=== PATIENT | male | born 1950 | race Asian ===

== ENCOUNTER 2019-12-27 20:08 | Inpatient (IN) | payer OTHER ==
[2019-12-27] MEDS ORDERED: ONDANSETRON 4 MG/2 ML VIAL ONE (20:14)
[2019-12-27] MEDS ORDERED: MORPHINE 4 MG/ML SYR ONE (20:14)
[2019-12-27] MEDS ORDERED: AMIODARONE HCL 150 MG/3 ML INJ IV ONE (20:15)
[2019-12-27] MEDS ORDERED: NA CHLORIDE 0.9% 1,000 ML ONE (20:17)
--- NOTE | 2019-12-27 20:42 | RAD REPORT ---
EXAM DESCRIPTION: [place] Single View12/27/2019 8:36 pm CLINICAL HISTORY: Chest pain COMPARISON: none FINDINGS: The lungs appear clear of acute infiltrate. The heart is borderline enlarged IMPRESSION: No acute abnormalities displayed
[2019-12-27 20:54] LABS: ALT/SGPT 42 U/L (12-78); AST/SGOT 44 U/L (15-37); Albumin 3.8 g/dL (3.4-5.0); Alkaline Phosphatase 38 U/L (45-117); BUN Blood Urea Nitrogen 17 mg/dL (7-18); Bicarbonate 22 mmol/L (21-32); Bilirubin Direct 0.1 mg/dL (0-0.2); Bilirubin Total 0.5 mg/dL (0.2-1.0); Glucose Level 159 mg/dL (74-106); Magnesium 2.1 mg/dL (1.8-2.4); NT PRO-BNP 1481 pg/mL (<125); Protein, Total 7.1 g/dL (6.4-8.2); Sodium Level 137 mmol/L (136-145); Troponin (Emerg Dept Use Only) < 0.02 ng/mL (0.0-0.045)
[2019-12-27 21:00] LABS: Absolute Lymphocytes (CBC) 0.7 K/uL (0.7-4.9); Basophils % 0.3 % (0-1.3); Hematocrit 36.9 % (39.6-49.0); Lymphocytes % 19.2 % (15.3-44.8); MPV 7.7 fL (7.6-11.3); RBC Red Blood Cell Count 3.84 M/uL (4.33-5.43)
[2019-12-27 21:01] LABS: Protime INR 0.95
--- NOTE | 2019-12-27 21:15 | ER ---
Nurse's Notes [facility] Name: Juana Cerda Age: 69 yrs Sex: Male : 1950 Arrival Date: 12/27/2019 Time: 20:09 Bed 3 Private MD: Diagnosis: Ventricular tachycardia;Other chest pain Presentation: 12/26 20:10 Chief complaint: EMS states: "[place] and he started having chest jd3 pain. his family helped him to lay on the ground. he has a cardiac history and his current heart rate is 200.". Coronavirus screen: Proceed with normal triage. Ebola Screen: Patient negative for fever greater than or equal to 101.5 degrees Fahrenheit, and additional compatible Ebola Virus Disease symptoms. Initial Sepsis Screen: Does the patient meet any 2 criteria? HR > 90 bpm. No. Patient's initial sepsis screen is negative. Does the patient have a suspected source of infection? No. Patient's initial sepsis screen is negative. Risk Assessment: Do you want to hurt yourself or someone else? Patient reports no desire to harm self or others. Onset of symptoms was December 27, 2019. 20:10 Method Of Arrival: EMS: [facility] jd3 20:10 Acuity: STELLA 1 jd3 Historical: - Allergies: 20:30 No Known Allergies; jd3 - Home Meds: 20:30 Aspirin Oral [Active]; Metformin Oral [Active]; Metoprolol Tartrate Oral [Active]; jd3 - PMHx: 20:30 Atrial Fib; Myocardial infarction; Hypertension; Diabetes - NIDDM; jd3 - Immunization history:: Adult Immunizations unknown. - Social history:: Smoking status: Patient denies any tobacco usage or history of. Screenin:37 Abuse screen: Denies threats or abuse. Nutritional screening: No deficits noted. jd3 Tuberculosis screening: No symptoms or risk factors identified. Fall Risk IV access (20 points). Ambulatory Aid- None/Bed Rest/Nurse Assist (0 pts). Gait- Normal/Bed Rest/Wheelchair (0 pts) Mental Status- Oriented to own ability (0 pts). Total Newberry Fall Scale indicates No Risk (0-24 pts). Assessment: 20:10 General: Appears uncomfortable, Behavior is cooperative, appropriate for age, anxious. jd3 Pain: Complains of pain in chest Pain does not radiate. Pain currently is 10 out of 10 on a pain scale. Quality of pain is described as crushing, pressure, sharp, Pain began suddenly, Is continuous. Neuro: Level of Consciousness is awake, alert, obeys commands, Oriented to person, place, time, situation. Cardiovascular: Heart tones present Capillary refill < 3 seconds Rhythm is SVT. Respiratory: Airway is patent Respiratory effort is even, unlabored, Respiratory pattern is symmetrical, tachypnea Breath sounds are clear bilaterally. GI: Abdomen is round non-distended, Bowel sounds present X 4 quads. Abd is soft and non tender X 4 quads. Patient currently denies nausea, vomiting. : No signs and/or symptoms were reported regarding the genitourinary system. EENT: No signs and/or symptoms were reported regarding the EENT system. Derm: Skin is intact, Skin is clammy, Skin is pale, Skin temperature is cool. Musculoskeletal: Circulation, motion, and sensation intact. Range of motion: intact in all extremities. 20:20 Reassessment: Patient and/or family updated on plan of care and expected duration. Pain jd3 level reassessed. Patient states feeling better. General: Appears comfortable, Behavior is calm, cooperative, appropriate for age. Pain: Complains of pain in chest Quality of pain is described as aching, pressure. Cardiovascular: Heart tones S1 S2 present Capillary refill < 3 seconds Patient's skin is warm and dry. Rhythm is sinus tachycardia. Respiratory: Airway is patent Respiratory effort is even, unlabored, Respiratory pattern is symmetrical, tachypnea. Derm: Skin is intact, Skin is dry, Skin is normal, Skin temperature is warm. 21:15 Reassessment: Patient and/or family updated on plan of care and expected duration. Pain jd3 level reassessed. Patient is alert, oriented x 3, equal unlabored respirations, skin warm/dry/pink. Patient states feeling better. 22:05 Reassessment: Patient and/or family updated on plan of care and expected duration. Pain jd3 level reassessed. Patient is alert, oriented x 3, equal unlabored respirations, skin warm/dry/pink. report given to Pamela CONNOR. Vital Signs: 20:10 BP 74 / 60; Pulse 202; Resp 24 S; Temp 97.2(TE); Pulse Ox 100% on Non-rebreather mask; jd3 Weight 54.43 kg (R); Height 5 ft. 0 in. (152.40 cm) (R); Pain 10/10; 20:13 Pulse 162; Resp 24 S; Pulse Ox 100% on Non-rebreather mask; jd3 20:14 BP 97 / 69; Pulse 103; Resp 25 S; Pulse Ox 100% on Non-rebreather mask; jd3 20:15 BP 104 / 74; Pulse 103; Resp 23 S; Pulse Ox 100% on Non-rebreather mask; jd3 20:20 BP 104 / 77; Pulse 104; Resp 22 S; Pulse Ox 100% on Non-rebreather mask; jd3 20:30 BP 102 / 80; Pulse 108; Resp 19 S; Pulse Ox 100% on 2 lpm NC; jd3 21:15 BP 106 / 79; Pulse 115; Resp 19 S; Pulse Ox 100% on 2 lpm NC; jd3 22:06 BP 118 / 98; Pulse 108; Resp 20 S; Pulse Ox 100% on 2 lpm NC; jd3 20:10 Body Mass Index 23.44 (54.43 kg, 152.40 cm) [facility] ED Course: 20:07 EKG done, by ED staff, reviewed by Fabrice Anderson MD. sg 20:09 Patient arrived in ED. ds1 20:10 Arm band placed on. EKG completed in triage. Results shown to MD. jd3 20:15 Initial lab(s) drawn, by me, sent to lab. Missed attempt(s): 18 gauge in right sg antecubital area. Bleeding controlled, band aid applied, catheter tip intact. 20:19 Fabrice Anderson MD is Attending Physician. tw4 20:20 Patient has correct armband on for positive identification. Bed in low position. Call [facility] light in reach. Side rails up X2. Adult w/ patient. environmental monitoring technician on. Pulse ox on. NIBP on. 20:20 Inserted saline lock: 20 gauge in left antecubital area, using aseptic technique. oe 20:20 Missed attempt(s): 20 gauge in right wrist. Bleeding controlled, band aid applied, sg catheter tip intact. 20:21 EKG done, by ED staff, reviewed by Fabrice Anderson MD. sg 20:23 Barksdale, Aaron, RN is Primary Nurse. jd3 20:25 Triage completed. jd3 20:37 XRAY Chest (1 view) In Process Unspecified. EDMS 20:37 Oxygen administration via non-rebreather mask \\T\\ 15L/min Response to oxygen therapy: jd3 symptoms improved. 21:14 Mignon Ruiz MD is Hospitalizing Provider. tw4 22:05 No provider procedures requiring assistance completed. Patient admitted, IV remains in jd3 place. Administered Medications: 20:12 Drug: amiodarone 150 mg Route: IVP; Site: left antecubital; jd3 21:00 Follow up: Response: No adverse reaction jd3 20:12 Drug: NS 0.9% 1000 ml Route: IV; Rate: 1 bolus; Site: left antecubital; jd3 21:00 Follow up: Response: No adverse reaction; IV Status: Completed infusion; IV Intake: jd3 1000ml 21:34 Drug: amiodarone 900 mg, D5W 500 ml {Note: administering dose of 360mg per 200 ml D5W, jd3 per verbal order started..} Route: IVPB; Rate: 1 mg/min; Site: left antecubital; 22:06 Follow up: Response: No adverse reaction; IV Status: Infusion continued upon admission jd3 Intake: 21:00 IV: 1000ml; Total: 1000ml. jd3 Outcome: 21:14 Decision to Hospitalize by Provider. tw4 22:05 Admitted to ICU accompanied by nurse, accompanied by tech, via stretcher, room ICU 6, jd3 with oxygen, on monitor, with chart, Report called to Pamela CONNOR 22:05 Condition: stable 22:05 Instructed on the need for admit, Demonstrated understanding of instructions. 22:29 Patient left the ED. all Signatures: Dispatcher [employer] EDMS Jayesh Juarez, RN Amy Colon ds1 Damaso Montiel Elena, RN RN ea Davies, Jonathon, RN RN jd3 Wadley, Terrence, MD MD tw4 Corrections: (The following items were deleted from the chart) 20:31 20:30 Home Meds: Glucophage Oral; jd3 jd3 20:40 20:30 BP 102 / 80; Pulse 108bpm; Resp 19bpm; Spontaneous; Pulse Ox 100% Non-rebreather jd3 mask; jd3
--- NOTE | 2019-12-27 21:16 | EDPHYS ---
Physician Documentation [facility] Name: Juana Cerda Age: 69 yrs Sex: Male : 1950 Arrival Date: 12/27/2019 Time: 20:09 Bed 3 Private MD: ED Physician Fabrice Anderson HPI: 12/27 02:37 This 69 yrs old Male presents to ER via EMS with complaints of Chest Pain. tw4 02:37 The patient or guardian reports chest pain that is located primarily in the anterior tw4 chest wall, left. Onset: today. The pain does not radiate. The chest pain is described as dull. Duration: The patient or guardian reports a single episode. Modifying factors: The symptoms are alleviated by nothing. the symptoms are aggravated by nothing. Severity of pain: At its worst the pain was moderate in the emergency department the pain is unchanged. The patient has not experienced similar symptoms in the past. 02:39 Associated signs and symptoms: Pertinent positives: palpitations, shortness of breath. tw4 Historical: - Allergies: 12/26 20:30 No Known Allergies; jd3 - Home Meds: 20:30 Aspirin Oral [Active]; Metformin Oral [Active]; Metoprolol Tartrate Oral [Active]; jd3 - PMHx: 20:30 Atrial Fib; Myocardial infarction; Hypertension; Diabetes - NIDDM; jd3 - Immunization history:: Adult Immunizations unknown. - Social history:: Smoking status: Patient denies any tobacco usage or history of. ROS: 12/27 02:37 Constitutional: Negative for fever, chills, and weight loss, Eyes: Negative for injury, tw4 pain, redness, and discharge, Respiratory: Negative for shortness of breath, cough, wheezing, and pleuritic chest pain, Abdomen/GI: Negative for abdominal pain, nausea, vomiting, diarrhea, and constipation, Back: Negative for injury and pain, MS/Extremity: Negative for injury and deformity, Skin: Negative for injury, rash, and discoloration. Cardiovascular: Positive for chest pain, palpitations. Exam: 02:40 Constitutional: This is a well developed, well nourished patient who is awake, alert, tw4 and in no acute distress. Head/Face: Normocephalic, atraumatic. Chest/axilla: Normal chest wall appearance and motion. Nontender with no deformity. No lesions are appreciated. Respiratory: Lungs have equal breath sounds bilaterally, clear to auscultation and percussion. No rales, rhonchi or wheezes noted. No increased work of breathing, no retractions or nasal flaring. Abdomen/GI: Soft, non-tender, with normal bowel sounds. No distension or tympany. No guarding or rebound. No evidence of tenderness throughout. Back: No spinal tenderness. No costovertebral tenderness. Full range of motion. MS/ Extremity: Pulses equal, no cyanosis. Neurovascular intact. Full, normal range of motion. Neuro: Awake and alert, GCS 15, oriented to person, place, time, and situation. Cranial nerves II-XII grossly intact. Motor strength 5/5 in all extremities. Sensory grossly intact. Cerebellar exam normal. Normal gait. 02:40 Cardiovascular: Rate: tachycardic, actual rate is 200 bpm, Rhythm: regular. Vital Signs: 12/26 20:10 BP 74 / 60; Pulse 202; Resp 24 S; Temp 97.2(TE); Pulse Ox 100% on Non-rebreather mask; jd3 Weight 54.43 kg (R); Height 5 ft. 0 in. (152.40 cm) (R); Pain 10/10; 20:13 Pulse 162; Resp 24 S; Pulse Ox 100% on Non-rebreather mask; jd3 20:14 BP 97 / 69; Pulse 103; Resp 25 S; Pulse Ox 100% on Non-rebreather mask; jd3 20:15 BP 104 / 74; Pulse 103; Resp 23 S; Pulse Ox 100% on Non-rebreather mask; jd3 20:20 BP 104 / 77; Pulse 104; Resp 22 S; Pulse Ox 100% on Non-rebreather mask; jd3 20:30 BP 102 / 80; Pulse 108; Resp 19 S; Pulse Ox 100% on 2 lpm NC; jd3 21:15 BP 106 / 79; Pulse 115; Resp 19 S; Pulse Ox 100% on 2 lpm NC; jd3 22:06 BP 118 / 98; Pulse 108; Resp 20 S; Pulse Ox 100% on 2 lpm NC; jd3 20:10 Body Mass Index 23.44 (54.43 kg, 152.40 cm) jd3 MDM: 20:23 Patient medically screened. tw4 12/27 02:41 Differential diagnosis: abnormal EKG, acute pericarditis, cholecystitis, Cholelithiasis tw4 pulmonary embolus, stable angina, thoracic aortic disection, unstable angina. HEART Score: History: Moderately Suspicious (1), ECG: Significant ST-deviation (2), Age: > or = 65 years (2), Risk Factors: > or = 3 Risk factors for atherosclerotic disease (2), Troponin: < or = 1 x Normal Limit (0), Total Score = 7. The patient was given aspirin in the Emergency Department. Data reviewed: vital signs, nurses notes. Data reviewed: lab test result(s), cardiac enzymes, CBC, hepatic panel, EKG, radiologic studies, plain films. Data interpreted: Pulse oximetry: Interpretation: normal. Counseling: I had a detailed discussion with the patient and/or guardian regarding: the historical points, exam findings, and any diagnostic results supporting the discharge/admit diagnosis, lab results, radiology results. 12/26 20:20 Order name: Basic Metabolic Panel; Complete Time: 21:10 12/26 21:10 Interpretation: Normal except: GLUC 159; GFR 43; CRE 1.59. 12/26 20:20 Order name: CBC with Diff; Complete Time: 21:10 12/26 21:11 Interpretation: Normal except: WBC 3.8; RBC 3.84; HGB 12.6; HCT 36.9; PLT 148. 12/26 20:20 Order name: LFT's; Complete Time: 21:10 12/26 21:11 Interpretation: Normal except: AST 44; ALK 38. 12/26 20:20 Order name: Magnesium; Complete Time: 21:10 12/26 21:12 Interpretation: Within normal limits: MG 2.1. 12/26 20:20 Order name: NT PRO-BNP; Complete Time: 21:10 12/26 21:12 Interpretation: Normal except: NT PRO-BNP 1481. 12/26 20:20 Order name: PT-INR; Complete Time: 21:10 12/26 21:12 Interpretation: Within normal limits: PT 11.2. 12/26 20:20 Order name: Troponin (emerg Dept Use Only); Complete Time: 21:10 12/26 21:13 Interpretation: Within normal limits: TROPED < 0.02. tw4 12/26 20:32 Order name: Glucose, Ancillary Testing; Complete Time: 21:10 EDMS 12/26 21:12 Interpretation: Within normal limits: GLUC,ANCIL 161. tw4 12/26 21:26 Order name: Comprehensive Metabolic Panel EDMS 12/26 21:26 Order name: Comprehensive Metabolic Panel EDMS 12/26 21:26 Order name: Lactate EDMS 12/26 21:26 Order name: Lactate EDMS 12/26 21:26 Order name: Lipid Profile EDMS 12/26 21:26 Order name: Lipid Profile EDMS 12/26 20:20 Order name: XRAY Chest (1 view); Complete Time: 21:10 ea 12/26 20:20 Order name: EKG; Complete Time: 20:23 ea 12/26 21:26 Order name: Magnesium EDMS 12/26 21:26 Order name: Magnesium EDMS 12/26 21:26 Order name: NT PRO-BNP EDMS 12/26 21:26 Order name: NT PRO-BNP EDAR 12/26 21:26 Order name: Phosphorus EDMS 12/26 21:26 Order name: Phosphorus EDMS 12/26 21:27 Order name: CONS Physician Consult EDMS 12/26 21:27 Order name: EKG Electrocardiogram EDMS 12/26 21:28 Order name: EKG Electrocardiogram EDMS 12/26 21:28 Order name: EKG Electrocardiogram EDMS 12/26 21:28 Order name: Troponin I EDAR 12/26 20:20 Order name: Cardiac monitoring; Complete Time: 20:29 ea 12/26 20:20 Order name: EKG - Nurse/Tech; Complete Time: 20:33 ea 12/26 20:20 Order name: IV Saline Lock; Complete Time: 20:33 ea 12/26 20:20 Order name: Labs collected and sent; Complete Time: 20:33 ea 12/26 20:20 Order name: O2 Per Protocol; Complete Time: 20:37 ea 12/26 20:20 Order name: O2 Sat Monitoring; Complete Time: 20:37 ea EC:41 Rate is 2 beats/min. Rhythm is regular, V tach. QRS [place] is Normal. [place] interval is tw4 normal. QRS interval is prolonged. QT interval is normal. No Q waves. T waves are Normal. No ST changes noted. Clinical impression: VENTRICULAR TACHYCARDIA. Interpreted by me. Reviewed by me. Administered Medications: 12/26 20:12 Drug: amiodarone 150 mg Route: IVP; Site: left antecubital; jd3 21:00 Follow up: Response: No adverse reaction jd3 20:12 Drug: NS 0.9% 1000 ml Route: IV; Rate: 1 bolus; Site: left antecubital; jd3 21:00 Follow up: Response: No adverse reaction; IV Status: Completed infusion; IV Intake: jd3 1000ml 21:34 Drug: amiodarone 900 mg, D5W 500 ml {Note: administering dose of 360mg per 200 ml D5W, jd3 per verbal order started..} Route: IVPB; Rate: 1 mg/min; Site: left antecubital; 22:06 Follow up: Response: No adverse reaction; IV Status: Infusion continued upon admission jd3 Disposition: 12/27 02:46 Critical Care:. tw4 Disposition: 12/27/19 21:14 Hospitalization ordered by Mignon Ruiz for Inpatient Admission. Preliminary diagnosis are Ventricular tachycardia, Other chest pain. - Bed requested for Intensive Care Unit. - Status is Inpatient Admission. ea - Condition is Stable. - Problem is new. - Symptoms have improved. Critical care time excluding procedures: 02:46 Critical care time: Bedside Care: 40 minutes, Consultation: 5 minutes, Family tw4 Intervention: 5 minutes. Total time: 50 minutes Signatures: Dispatcher [employer] EDMS Katty Jansen RN RN tl1 Flavia Peters RN RN ea Davies, Jonathon, RN RN jd3 Wadley, Terrence, MD MD tw4 Corrections: (The following items were deleted from the chart) 12/26 20:31 20:30 Home Meds: Glucophage Oral; jd3 jd3 34 21:14 Hospitalization Ordered by Mignon Ruiz MD for Inpatient Admission. Preliminary tl1 diagnosis is Ventricular tachycardia; Other chest pain. Bed requested for Intensive Care Unit. Status is Inpatient Admission. Condition is Stable. Problem is new. Symptoms have improved. tw4 22:29 21:34 12/27/2019 21:14 Hospitalization Ordered by Mignon Ruiz MD for Inpatient ea Admission. Preliminary diagnosis is Ventricular tachycardia; Other chest pain. Bed requested for Intensive Care Unit. Status is Inpatient Admission. Condition is Stable. Problem is new. Symptoms have improved. tl1 12/27 02:40 02:37 Associated signs and symptoms: The patient has no apparent associated signs or tw4 symptoms, tw4
[2019-12-27] MEDS ORDERED: ONDANSETRON 4 MG/2 ML VIAL IV PRN (21:21)
[2019-12-27] MEDS ORDERED: ACETAMINOPHEN 500 MG TAB PO PRN (21:21)
[2019-12-27] MEDS ORDERED: AMIODARONE IN DEXTROSE,ISO-OSM 360 MG/200 ML BAG IV ONE (21:28)
[2019-12-27] MEDS ORDERED: AMIODARONE HCL 900 MG in Dextrose 5%-Water 482 ML IV SCH (22:00)
[2019-12-27 23:36] VITALS: O2SAT 100
[2019-12-28 00:43] VITALS: BMI 31.1
[2019-12-28 05:12] LABS: Absolute Lymphocytes (CBC) 2.2 K/uL (0.7-4.9); Basophils % 0.4 % (0-1.3); Lymphocytes % 50.1 % (15.3-44.8); MPV 7.6 fL (7.6-11.3); RBC Red Blood Cell Count 4.04 M/uL (4.33-5.43)
[2019-12-28 05:21] LABS: Protime INR 0.97
[2019-12-28 05:57] LABS: Albumin 3.5 g/dL (3.4-5.0); Bilirubin Total 0.4 mg/dL (0.2-1.0); Potassium 3.9 mmol/L (3.5-5.1); Protein, Total 6.6 g/dL (6.4-8.2); Thyroid Stimulating Hormone 2.1 uIU/mL (0.360-3.740)
[2019-12-28 05:58] LABS: Troponin I 1.22 ng/mL (0.0-0.045)
--- NOTE | 2019-12-28 07:23 | P.HP ---
Certification for Inpatient Patient admitted to: Inpatient With expected LOS: >2 Midnights Patient will require the following post-hospital care: None Practitioner: I am a practitioner with admitting privileges, knowledge of patient current condition, hospital course, and medical plan of care. Services: Services provided to patient in accordance with Admission requirements found in Title 42 Section 412.3 of the Code of Federal Regulations Patient History Date of Service: 12/27/19 Reason for admission: Ventricular tachycardia History of Present Illness: Patient is a 69-year-old gentleman who came to the hospital with shortness of breath and palpitations. Patient was also having some chest discomfort. 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 Patient had been in a normal state of health until this evening when patient developed the palpitations and shortness of breath. In the emergency room patient was found have ventricular tachycardia. Patient was given IV amiodarone and heart rate came down. Started patient on amiodarone drip. Will also monitor QT interval-if prolonged will discontinue. Monitor cardiac rhythm as well. Cardiology consultation in the morning as well. Allergies No Known Allergies Allergy (Verified 12/27/19 22:39) Home Medications: Aspirin [Adult Low Dose Aspirin EC] 81 mg PO DAILY 12/28/19 Metformin ER [Glucophage ER*] 1 tab PO DAILY 12/28/19 Metoprolol Tartrate [Lopressor] 25 mg PO BID 12/28/19 - Past Medical/Surgical History Has patient received pneumonia vaccine in the past: Yes Diabetic: Yes -: Afib -: ND -: HTN -: NIDDM Past Surgical History: Patient denies surgical history - Family History Brother Medical History: Lung disease, Cancer - Social History Smoking Status: Current every day smoker Alcohol use: Yes CD- Drugs: No Caffeine use: Yes Place of Residence: Home Review of Systems 10-point ROS is otherwise unremarkable Physical Examination - Vital Signs Temperature: 97.4 F Blood Pressure: 117/79 Pulse: 74 Respirations: 18 Pulse Ox (%): 100 - Physical Exam General: Alert, In no apparent distress, Oriented x3 HEENT: Atraumatic, PERRLA, Mucous membr. moist/pink, EOMI, Sclerae nonicteric Neck: Supple, 2+ carotid pulse no bruit, No LAD, Without JVD or thyroid abnormality Respiratory: Clear to auscultation bilaterally, Normal air movement Cardiovascular: Irregular heart rate/rhythm, Systolic murmur Gastrointestinal: Normal bowel sounds, Soft and benign, Non-distended, No tenderness Musculoskeletal: No clubbing, No swelling, No tenderness Integumentary: No rashes Neurological: Normal speech, Normal tone, Sensation intact, Cranial nerves 3-12 intact, Normal affect, Abnormal gait, Abnormal strength Lymphatics: No axilla or inguinal lymphadenopathy - Studies Laboratory Data (last 24 hrs) 12/27/19 20:24: PT 11.2, INR 0.95 12/27/19 20:24: WBC 3.8 L, Hgb 12.6 L, Hct 36.9 L, Plt Count 148 L 12/27/19 20:17: Sodium 137, Potassium 5.0, BUN 17, Creatinine 1.59 H, Glucose 159 H, Magnesium 2.1, Total Bilirubin 0.5, AST 44 H, ALT 42, Alkaline Phosphatase 38 L Assessment & Plan - Problems (Diagnosis) (1) Ventricular tachycardia Current Visit: Yes Status: Acute (2) History of coronary artery disease Current Visit: Yes Status: Acute (3) History of atrial fibrillation Current Visit: Yes Status: Acute (4) HTN (hypertension) Current Visit: Yes Status: Acute (5) DM2 (diabetes mellitus, type 2) Current Visit: Yes Status: Acute - Plan Plan: 1. Will start amiodarone drip after discussion with Cardiology on-call 2. Monitor QT interval 3. May need anti coagulation 4. Monitor labs closely 5. Check thyroid studies 6. Continue beta-harrison therapy 7. GI and DVT prophylaxis Discharge Plan: Home Plan to discharge in: Greater than 2 days - Advance Directives Does patient have a Living Will: No Does patient have a Durable POA for Healthcare: No - Code Status/Comfort Care Code Status Assessed: Yes Code Status: Full Code Critical Care: Yes Time Spent Managing PTS Care (In Minutes): 50
[2019-12-28] MEDS ORDERED: METOPROLOL TAR 25 MG TAB PO SCH (07:30)
[2019-12-28] MEDS: RIVAROXABAN 10 MG TABLET PO SCH ×2 (08:13→08:19)
[2019-12-28] MEDS: SOTALOL HCL 80 MG TAB PO SCH ×3 (08:13→19:33)
[2019-12-28] MEDS: ASPIRIN EC 81 MG TAB PO SCH (08:14)
[2019-12-28] MEDS ORDERED: POTASSIUM CL SA 10 MEQ TAB PO ONE (09:00)
--- NOTE | 2019-12-28 10:12 | P.PN ---
Subjective Date of Service: 12/28/19 Patient was given amiodarone last night. Pt developed sinus bradycardia. Patience heart rate decrease to the 30s, Pts QT interval was prolonged at this time. Amiodarone was held. Cardiology consultation in AM. Continue beta-harrison therapy pending cardiology evaluation Review of Systems 10-point ROS is otherwise unremarkable Physical Examination - Vital Signs Temperature: 97.4 F Blood Pressure: 117/79 Pulse: 74 Respirations: 18 Pulse Ox (%): 100 - Physical Exam General: Alert, In no apparent distress, Oriented x3 Respiratory: Clear to auscultation bilaterally, Normal air movement Cardiovascular: Normal S1 S2, Irregular heart rate/rhythm, Systolic murmur Gastrointestinal: Normal bowel sounds, Soft and benign, Non-distended, No tenderness Musculoskeletal: No clubbing, No swelling, No tenderness Neurological: Normal speech, Normal tone - Studies Laboratory Data (last 24 hrs) 12/27/19 20:24: PT 11.2, INR 0.95 12/27/19 20:24: WBC 3.8 L, Hgb 12.6 L, Hct 36.9 L, Plt Count 148 L 12/27/19 20:17: Sodium 137, Potassium 5.0, BUN 17, Creatinine 1.59 H, Glucose 159 H, Magnesium 2.1, Total Bilirubin 0.5, AST 44 H, ALT 42, Alkaline Phosphatase 38 L Medications List Reviewed: Yes Assessment & Plan - Problems (Diagnosis) (1) Ventricular tachycardia Current Visit: Yes Status: Acute (2) History of coronary artery disease Current Visit: Yes Status: Acute (3) History of atrial fibrillation Current Visit: Yes Status: Acute (4) HTN (hypertension) Current Visit: Yes Status: Acute (5) DM2 (diabetes mellitus, type 2) Current Visit: Yes Status: Acute - Plan Plan: Continue with current POC and we will stop amiodarone drip; 2. Monitor QT interval; continue with beta-harrison therapy 3. May need anticoagulation 4. Monitor labs closely 5. Check thyroid studies 6. Continue home beta-harrison therapy 7. GI and DVT prophylaxis Discharge Plan: Home Plan to discharge in: Greater than 2 days - Advance Directives Does patient have a Living Will: No Does patient have a Durable POA for Healthcare: No - Code Status/Comfort Care Code Status: Full Code Critical Care: No Time Spent Managing PTS Care (In Minutes): 30
--- NOTE | 2019-12-28 15:19 | CON ---
Date of Consultation: 12/28/2019 The patient admitted on 12/27/[address] Kwok. I saw the patient 12/28/2019. Reason For Consultation: Atrial fibrillation. History Of Present Illness: Mr. Cerda is a 69-year-old male who speaks no Frisian. I had to u se a dietetic assistant to discuss his case with him and his family. The patient has a history of atrial fib rillation, hypertension, diabetes, coronary artery disease. Details are not very well known, but karlo arently has had atrial fibrillation in the past that had difficulty with medical therapy for him. He came into the emergency room with shortness of breath, palpitation, atrial fibrillation at a rate of 202. He was found to have elevated troponin. He denied any chest pain or syncope. Denied any feve r or chills or cough. Denied any PND, orthopnea, or pedal edema. Past Medical History: As stated above. Allergies: NONE. Review of Systems: Negative. Social History: Negative. Family History: Negative. Medications: At home include aspirin, metoprolol, metformin. Physical Examination: General: He was in atrial fibrillation at a rate of 110. HEENT: Negative. Neck: Supple. No bruit. Chest: Clear. Cardiac: Reveals atrial fibrillation. Abdomen: Benign. Extremities: Revealed no clubbing, cyanosis, or edema. Diagnostic Data: TSH was normal. Chest x-ray was normal. Troponin is 1.22. Impression And Plan: Atrial fibrillation. The patient was started on amiodarone drip, but he was yepez ving severe bradycardia and pauses. This was stopped. He is back in atrial fibrillation right now. I think we need to try sotalol 80 mg b.i.d. Put him on Xarelto. Get an echocardiogram today and if he does not convert by tomorrow, we will do a direct current cardioversion. NB/MODL Voice ID: [id number] Report ID: [id number]
--- NOTE | 2019-12-28 16:18 | EKG ---
Test Date: 2019-12-28 Test Time: 08:55:09 [employer] Log[employer] Manager: STELLA MEASUREMENT RESULTS: Intervals: Rate: 111 DC: QRSD: 150 QT: 390 QTc: 530 [place]: P: DC: QRS: 119 T: 54 INTERPRETIVE STATEMENTS: Atrial fibrillation with rapid ventricular response Right bundle branch block Abnormal ECG Compared to ECG 12/27/2019 20:21:51 Sinus tachycardia no longer present Left posterior fascicular block no longer present Bifascicular block no longer present Electronically Signed On 12-28-19 16:16:30 CDT by Micky Schumacher
--- NOTE | 2019-12-28 16:19 | EKG ---
Test Date: 2019-12-27 Test Time: 20:07:50 Lead Setter: SWG MEASUREMENT RESULTS: Intervals: Rate: 203 [place]: QRSD: 186 QT: 300 QTc: 551 [place]: P: UT: QRS: 208 T: 232 INTERPRETIVE STATEMENTS: Suspect arm lead reversal, interpretation assumes no reversal possible afib with rvr/rbbb aberrancy Right bundle branch block Inferior infarct, age undetermined Anterolateral infarct, age undetermined Abnormal ECG No previous ECG available for comparison Electronically Signed On 12-28-19 16:17:59 CDT by Micky Schumacher
--- NOTE | 2019-12-28 16:19 | EKG ---
Test Date: 2019-12-27 Test Time: 20:21:51 Intake Worker: SWG MEASUREMENT RESULTS: Intervals: Rate: 104 VT: 160 QRSD: 176 QT: 464 QTc: 610 [place]: P: VT: 160 QRS: 139 T: 25 INTERPRETIVE STATEMENTS: Sinus tachycardia Right bundle branch block Left posterior fascicular block Bifascicular block Abnormal ECG Compared to ECG 12/27/2019 20:07:50 Left posterior fascicular block now present Bifascicular block now present Wide-QRS tachycardia no longer present Myocardial infarct finding no longer present Electronically Signed On 12-28-19 16:17:06 CDT by Micky Schumacher
[2019-12-29] MEDS: SOTALOL HCL 80 MG TAB PO SCH ×3 (04:39→17:26)
--- NOTE | 2019-12-29 07:43 | P.PN ---
Subjective Date of Service: 12/29/19 Spoke with patient's through the language line. Patient has had a lot of anxiety. He woke up to allow on noise in the intensive care unit. This really startled him and he has been having some chest discomfort on and off. He has had palpitations as well. These come and go. Currently he is feeling better. He does feel like he may have some spells of anxiety that may need better control with anxiolytics. He would prefer to not use them at this time. Will monitor him very closely. Long-term mijares may need pacemaker in the future Review of Systems 10-point ROS is otherwise unremarkable Physical Examination - Vital Signs Temperature: 97.2 F Blood Pressure: 122/73 Pulse: 46 Respirations: 17 Pulse Ox (%): 100 - Physical Exam General: Alert, In no apparent distress, Oriented x3 Respiratory: Clear to auscultation bilaterally, Normal air movement Cardiovascular: Regular rate/rhythm, Normal S1 S2, No murmurs Gastrointestinal: Normal bowel sounds, Soft and benign, Non-distended, No tenderness Musculoskeletal: No clubbing, No swelling Neurological: Normal strength at 5/5 x4 extr, Normal tone, Sensation intact, Cranial nerves 3-12 intact - Studies Medications List Reviewed: Yes Assessment & Plan - Problems (Diagnosis) (1) Ventricular tachycardia Current Visit: Yes Status: Acute (2) History of coronary artery disease Current Visit: Yes Status: Acute (3) History of atrial fibrillation Current Visit: Yes Status: Acute (4) HTN (hypertension) Current Visit: Yes Status: Acute (5) DM2 (diabetes mellitus, type 2) Current Visit: Yes Status: Acute - Plan Plan: 1. Patient is on Sotalol 40mg po BID; sinus bradycardia 2. Monitor QT interval 3. May need anti coagulation 4. Monitor labs closely 5. Check thyroid studies 6. Continue beta-harrison therapy 7. Anxiolytics as needed 8. Outpt follow-up for possible pacemaker placement 9. GI and DVT prophylaxis Discharge Plan: Home Plan to discharge in: 48 Hours - Advance Directives Does patient have a Living Will: No Does patient have a Durable POA for Healthcare: No - Code Status/Comfort Care Code Status: Full Code Critical Care: No Time Spent Managing PTS Care (In Minutes): 45
--- NOTE | 2019-12-29 08:12 | ECHO ---
HEIGHT: 5 ft 0 in WEIGHT: 159 lb 4 oz DATE OF STUDY: 12/28/[address]: Micky Schumacher MD 2-DIMENSIONAL: YES M.MODE: YES DOPPLER: YES COLOR FLOW: YES TDS: NO PORTABLE: YES DEFINITY: NO BUBBLE STUDY: NO DIAGNOSIS: ATRIAL FLUTTER CARDIAC HISTORY: CATHERIZATION: NO SURGERY: NO PROSTHETIC VALVE: NO PACEMAKER: NO MEASUREMENTS (cm) DIASTOLIC (NORMALS) SYSTOLIC (NORMALS) IVSd 0.9 (0.6-1.2) LA Diam 3.6 (1.9-4.0) LVEF 56% LVIDd 3.8 (3.5-5.7) LVIDs 2.8 (2.0-3.5) %FS 28% LVPWd 1.2 (0.6-1.2) Ao Diam 3.4 (2.0-3.7) 2 DIMENSIONAL ASSESSMENT: RIGHT ATRIUM: NORMAL LEFT ATRIUM: NORMAL RIGHT VENTRICLE: NORMAL LEFT VENTRICLE: NORMAL TRICUSPID VALVE: NORMAL MITRAL VALVE: NORMAL PULMONIC VALVE: NORMAL AORTIC VALVE: NORMAL PERICARDIAL EFFUSION: NONE AORTIC ROOT: NORMAL LEFT VENTRICULAR WALL MOTION: NORMAL DOPPLER/COLOR FLOW: NORMAL COMMENTS: ATRIAL FIBRILLATION. NORMAL LEFT VENTRICULAR SIZE AND FUNCTION. NORMAL LEFT ATRIAL SIZE. NO THROMBUS. TECHNOLOGIST: Aura AGUILAR
[2019-12-29] MEDS ORDERED: RIVAROXABAN 20 MG TABLET PO SCH (09:00)
[2019-12-29] MEDS: ASPIRIN EC 81 MG TAB PO SCH (09:08)
[2019-12-29 10:49] LABS: Magnesium 1.9 mg/dL (1.8-2.4); Potassium 4.8 mmol/L (3.5-5.1)
--- NOTE | 2019-12-29 12:59 | EKG ---
Test Date: 2019-12-29 Test Time: 01:46:42 Nutritional Assistant: YNES MEASUREMENT RESULTS: Intervals: Rate: 55 ND: QRSD: 148 QT: 530 QTc: 507 [place]: P: ND: QRS: 68 T: 29 INTERPRETIVE STATEMENTS: Atrial fibrillation with slow ventricular response Right bundle branch block Abnormal ECG Compared to ECG 12/28/2019 08:55:09 No significant changes Electronically Signed On 12-29-19 12:58:18 CDT by Micky Schumacher
--- NOTE | 2019-12-29 12:59 | EKG ---
Test Date: 2019-12-29 Test Time: 09:41:59 Warping Mill Operator: STELLA MEASUREMENT RESULTS: Intervals: Rate: 93 [place]: QRSD: 142 QT: 448 QTc: 557 [place]: P: [place]: QRS: 90 T: 63 INTERPRETIVE STATEMENTS: Atrial fibrillation Right bundle branch block Abnormal ECG Compared to ECG 12/29/2019 01:46:42 No significant changes Electronically Signed On 12-29-19 12:58:13 CDT by Micky Schumacher
--- NOTE | 2019-12-29 14:43 | P.DS ---
Admission Date: 12/27/19 Discharge Date: 12/29/19 Disposition: ROUTINE DISCHARGE Discharge Condition: GOOD Reason for Admission: Ventricular tachycardia Consultations: Cardiology-Dr. Schumacher Procedures: ECHO: EF 56% LEFT VENTRICULAR WALL MOTION: NORMAL DOPPLER/COLOR FLOW: NORMAL COMMENTS: ATRIAL FIBRILLATION. NORMAL LEFT VENTRICULAR SIZE AND FUNCTION. NORMAL LEFT ATRIAL SIZE. NO THROMBUS Medical Problem List: Chest pain secondary to atrial fibrillation with elevated troponin Brief History of Present Illness: 69-year-old [place] presented to the emergency room with chest pain. Patient found to have atrial fibrillation with accelerated rate. Patient was placed on amiodarone and admitted for further evaluation. Hospital Course: Patient presented with atrial fibrillation. Cardiology was consulted to further address and treat. Patient was initially placed on amiodarone. This caused severe bradycardia with some sinus pause. Amiodarone was stopped. Patient was switched over to sotalol. Patient tolerated medication well. Troponin slightly elevated. Echocardiogram unremarkable with normal ejection fraction. Patient with prior history of atrial fibrillation treated angina. Patient was taking beta-harrison as needed. At discharge patient without significant chest pain or shortness of breath. At discharge patient will continue with sotalol 40 mg twice daily and Xarelto 20 mg 1 pill daily daily. Education on sotalol and Xarelto will be provided. Recommend follow up with cardiology in 1 week to follow up this hospitalization. If this persists and patient fells medication patient will likely require cardioversion or ablation therapy. Patient with history of diabetes. This seems to be well controlled. Patient may continue with Glucophage as directed. Recommend to establish care with a PCP to further monitor and address. Vital Signs/Physical Exam: Temp Pulse Resp BP Pulse Ox 97.4 F 86 18 137/83 97 12/29/19 12:00 12/29/19 12:00 12/29/19 12:00 12/29/19 12:12/29/19 12:00 General: Alert, In no apparent distress, Oriented x3, Cooperative HEENT: Atraumatic Neck: Supple Respiratory: Clear to auscultation bilaterally, Normal air movement Cardiovascular: Normal pulses, Regular rate/rhythm Gastrointestinal: Normal bowel sounds, Soft and benign, Non-distended Neurological: Normal speech, Normal strength at 5/5 x4 extr, Normal tone, Normal affect Laboratory Data at Discharge: WBC 4.5 K/uL (4.3-10.9) D 12/28/19 04:57 Hgb 13.0 g/dL (13.6-17.9) L 12/28/19 04:57 Hct 38.0 % (39.6-49.0) L 12/28/19 04:57 Plt Count 160 K/uL (152-406) 12/28/19 04:57 PT 11.5 SECONDS (9.5-12.5) 12/28/19 04:57 INR 0.97 12/28/19 04:57 APTT 29.7 SECONDS (24.3-36.9) 12/28/19 04:57 Sodium 137 mmol/L (136-145) 12/29/19 10:24 Potassium 4.8 mmol/L (3.5-5.1) 12/29/19 10:24 BUN 15 mg/dL (7-18) 12/29/19 10:24 Creatinine 0.97 mg/dL (0.55-1.3) 12/29/19 10:24 Glucose 175 mg/dL (74-106) H 12/29/19 10:24 Phosphorus 4.0 mg/dL (2.5-4.9) 12/28/19 04:57 Magnesium 1.9 mg/dL (1.8-2.4) 12/29/19 10:24 Total Bilirubin 0.4 mg/dL (0.2-1.0) 12/28/19 04:57 AST 30 U/L (15-37) 12/28/19 04:57 ALT 36 U/L (12-78) 12/28/19 04:57 Alkaline Phosphatase 36 U/L (45-117) L 12/28/19 04:57 Troponin I 1.22 ng/mL (0.0-0.045) H* 12/28/19 04:57 Triglycerides 80 mg/dL (<150) 12/28/19 04:57 Cholesterol 156 mg/dL (<200) 12/28/19 04:57 HDL Cholesterol 53 mg/dL (40-60) 12/28/19 04:57 Cholesterol/HDL Ratio 2.94 12/28/19 04:57 Home Medications: Aspirin [Adult Low Dose Aspirin EC] 81 mg PO DAILY 12/28/19 Metformin ER [Glucophage ER*] 1 tab PO DAILY 12/28/19 Rivaroxaban [Xarelto] 20 mg PO DAILY #30 tablet 12/29/19 Sotalol HCl [Betapace*] 40 mg PO BID 6AM 6PM #30 tab 12/29/19 New Medications: Sotalol HCl [Betapace*] 40 mg PO BID 6AM 6PM #30 tab Rivaroxaban [Xarelto] 20 mg PO DAILY #30 tablet Patient Discharge Instructions: 1. Recommend follow up with his PCP in 1 week to follow up this hospitalization. 2. Patient presented with atrial fibrillation. Cardiology was consulted to further address and treat. Patient was initially placed on amiodarone. This caused severe bradycardia with some sinus pause. Amiodarone was stopped. Patient was switched over to sotalol. Patient tolerated medication well. Troponin slightly elevated. Echocardiogram unremarkable with normal ejection fraction. Patient with prior history of atrial fibrillation treated angina. Patient was taking beta-harrison as needed. At discharge patient without significant chest pain or shortness of breath. At discharge patient will continue with sotalol 40 mg twice daily and Xarelto 20 mg 1 pill daily daily. Education on sotalol and Xarelto will be provided. Recommend follow up with cardiology in 1 week to follow up this hospitalization. If this persists and patient fells medication patient will likely require cardioversion or ablation therapy. 3. Patient with history of diabetes. This seems to be well controlled. Patient may continue with Glucophage as directed. Recommend to establish care with a PCP to further monitor and address. Diet: AHA Activity: Ad luz marina Time spent managing pt's care (in minutes): 55
--- NOTE | 2019-12-29 16:26 | PN ---
Date of Progress Note: 12/29/2019 yesterday. He is in sinus rhythm today. Heart rate in the 40s to 50s. He is on Eliquis. Echocardiogram which was done was normal. He has had paroxysmal atrial fibrillation, on sotalol, w ith a rate of only 110-120. He is asymptomatic with that. I am comfortable with him going home on s otalol 40 b.i.d. and Eliquis. I will see him in the office in the near future. I will obtain an thomas nt monitor on him and a Lexiscan, and if he continues to have severe bradycardia with symptoms or atr ial fibrillation with symptoms, then he will need an ablation. NEELA/ELIEL Voice ID: [id number] Report ID: [id number]
[2019-12-29 17:33] VITALS: BP 126/78; TEMP 96.9
== END 2019-12-29 17:46 | disposition home or self-care (01) | DRG 310 ==
LOC: ER 20:08 → ERHOLD 21:43 → 3RD-ICU 22:11 → 2ND 12-29 10:30
PROVIDERS: ADMIT Hospitalist; ATTEND Family Medicine
DX: I48.91 Unspecified atrial fibrillation (principal); I10 Essential (primary) hypertension; E11.9 Type 2 diabetes mellitus without complications; F17.200 Nicotine dependence, unspecified, uncomplicated; F41.9 Anxiety disorder, unspecified; I25.10 Atherosclerotic heart disease of native coronary artery without angina pectoris; I47.2 Ventricular tachycardia; I25.2 Old myocardial infarction; Z79.84 Long term (current) use of oral hypoglycemic drugs; Z79.82 Long term (current) use of aspirin; Z79.899 Other long term (current) drug therapy
CPT/HCPCS: 36415; 71045; 80048; 80053; 80061; 80076; 82947; 83605; 83735; 83880; 84100; 84439; 84443; 84484; 85025; 85610; 85730; 93005; 93306; 96361; 96365; 99291; J0282; J2405; J7030